=== PATIENT | male | born 1985 | race Caucasian/White ===

== ENCOUNTER 2023-08-14 12:25 | Emergency (ER) | payer BC ==
[~2023-08-14] VITALS: Ht 180.3 cm; Wt 87.3 kg
[2023-08-14 12:34] VITALS: TEMP 97.6
[2023-08-14] MEDS ORDERED: LIDOCAINE 1%/EPI 1:200,000/PF 30 ML VIAL SQ ONE (14:30)
[2023-08-14] MEDS ORDERED: PERTUSS(ACELL),DIPH,TET VAC/PF 0.5 ML SYRINGE IM. ONE (14:30)
[2023-08-14 15:44] VITALS: BP 122/92; PULSE 72; RESP 16
[2023-08-14] MEDS ORDERED: BACITRACIN 0.9 GM PACKET OINTMENT TP ONE (16:45)
[2023-08-14] MEDS ORDERED: CEPH-558 PO (16:53)
[2023-08-14] MEDS ORDERED: TRAM-559 PO (17:02)
== END 2023-08-14 17:15 | disposition home or self-care (01) ==
LOC: EMS 12:25
DX: S81.811A Laceration without foreign body, right lower leg, initial encounter (principal); X58.XXXA Exposure to other specified factors, initial encounter; Y93.89 Activity, other specified; Y92.89 Other specified places as the place of occurrence of the external cause; Y99.8 Other external cause status
CPT/HCPCS: 99283; 73590; 90715; 90471; 12004; J3490